=== PATIENT | female | born 1950 ===

== ENCOUNTER 2021-07-24 10:18 | Outpatient (CLI) | payer OTHER | END 2021-07-24 10:23 | disposition home or self-care (01) | LOC: RX STUDY 10:18 | PROVIDERS: ATTEND Urology | DX: N81.89 Other female genital prolapse (principal); K57.90 Diverticulosis of intestine, part unspecified, without perforation or abscess without bleeding | CPT/HCPCS: 51600; 74455; Q9958 ==